=== PATIENT | female | born 1995 | race Caucasian/White ===

== ENCOUNTER 2018-06-01 16:54 | Emergency (ER) | payer BC, OTHER ==
[~2018-06-01] VITALS: Ht 170.2 cm; Wt 79.4 kg
[2018-06-01] MEDS ORDERED: TYLENOL325 MG PO (17:12)
[2018-06-01] MEDS ORDERED: PRENATAL PO (17:13)
[2018-06-01 17:51] LABS: ABSOLUTE BASOPHILS 0.1 thou/uL (0.0-0.2); ABSOLUTE EOSINOPHILS 0.1 thou/uL (0.0-0.7); ABSOLUTE MONOCYTES 1.2 thou/uL (0.0-1.2); BASOPHILS 0.9 %; EOSINOPHILS 0.7 %; HEMATOCRIT 39.5 % (37.0-47.0); HEMOGLOBIN 13.8 gm/dL (12.0-15.0); LYMPHOCYTES 24.1 %; MCH 30.8 pg (26.0-34.0); MCHC 34.9 g/dL (28.0-37.0); MCV 88.4 fL (80.0-100.0); MONOCYTES 7.5 %; MPV 7.9 fl. (7.2-11.1); NUCLEATED RBCS 0 /100WBC; PLATELET COUNT* 446 thou/uL (150-400); POLYS 66.8 %; RBC 4.47 mil/uL (4.20-5.00); RDW-CV 12.8 % (10.5-14.5); WBC 16.4 thou/uL (4.0-11.0)
[2018-06-01 18:00] LABS: CALCIUM 8.2 mg/dL (8.5-10.1); CREATININE 0.5 mg/dL (0.6-1.3); POTASSIUM 3.7 mmol/L (3.5-5.1)
[2018-06-01 18:15] LABS: ALBUMIN 2.9 g/dL (3.4-5.0); TOTAL BILIRUBIN 0.3 mg/dL (<0.1-1.0)
[2018-06-01 18:20] LABS: URINE BILIRUBIN NEGATIVE (Negative); URINE BLOOD NEGATIVE (Negative); URINE CLARITY CLEAR; URINE COLOR YELLOW; URINE GLUCOSE-RANDOM NEGATIVE (Negative); URINE KETONES NEGATIVE (Negative); URINE LEUKOCYTES-REFLEX NEGATIVE (Negative); URINE NITRITE-REFLEX NEGATIVE (Negative); URINE PROTEIN NEGATIVE (Negative); URINE SPECIFIC GRAVITY <= 1.005 (1.005-1.030); URINE UROBILINOGEN 0.2 E.U./dl (0.2-1.0)
[2018-06-01 19:21] VITALS: BP 116/75
--- NOTE | 2018-06-02 09:39 | EKG ---
[place] [address] ELECTROCARDIOGRAM REPORT Name: JOSE A TERRY Room: [facility]#: [id number] Admission: 06/01/18 Attend Phys: Discharge: 06/01/18 Date of : [birth year] Report #: [id number] THIS REPORT FOR: //name// [facility] ED Test Date: 2018-06-01 Test Time: 17:51:54 Pat Name: JOSE A TERRY Department: Room: Gender: F [employer] Cutter: : 1995 Requested By: Lizzy Cotton Order Number: [id number] MD: Humza Olvera Measurements Intervals [place] Rate: 76 P: 24 RI: 155 QRS: 48 QRSD: 103 T: 10 QT: 371 QTc: 418 Interpretive Statements Sinus rhythm Borderline T abnormalities, anterior leads No previous ECG available for comparison Electronically Signed On 06-02-2018 9:39:20 CDT by Humza Olvera [email or web address] <ELECTRONICALLY SIGNED> By: Humza Olvera MD, [facility] 06/02/18 0939 [id number] 50 Humza Olvera MD, FAC /EPI
== END 2018-06-01 19:36 | disposition home or self-care (01) ==
LOC: M.ERS 16:54
PROVIDERS: Nurse Practitioner Family
DX: O26.892 Other specified pregnancy related conditions, second trimester (principal); Z3A.27 27 weeks gestation of pregnancy; R42 Dizziness and giddiness; E16.2 Hypoglycemia, unspecified; Z90.49 Acquired absence of other specified parts of digestive tract